=== PATIENT | male | born 1935 | race Caucasian/White ===

== ENCOUNTER 2021-06-05 19:01 | Emergency (ER) | payer OTHER, SELFPAY ==
--- NOTE | ~2021-06-05 | XR_ITS ---
EXAMINATION: XR chest 1V portable EXAM DATE: 06/05/2021 19:54 INDICATION: Disorientation, headache, and dizziness; pacemaker in 2016. TECHNIQUE: Portable AP frontal chest x-ray was obtained. There is no prior study for comparison. FINDINGS: There is a dual lead pacemaker/AICD seen with leads projecting over the expected locations of the right atrial appendage and right ventricle. The lungs are clear. There are no pleural effusio ns. The cardiomediastinal silhouette is within normal limits. There is no pneumothorax suspected. The bones and soft tissues are unremarkable. IMPRESSION: No acute cardiopulmonary findings. Reviewed, dictated and finalized at location G.
--- NOTE | 2021-06-05 19:13 | ECG_ITS ---
Measurements Intervals [place] Rate: 80 P: 233 AK: 305 QRS: 43 QRSD: 91 T: 44 QT: 398 QTc: 462 Interpretive Statements ELECTRONIC ATRIAL PACEMAKER NONSPECIFIC ST & T-WAVE ABNORMALITY ABNORMAL ECG NO PREVIOUS ECG AVAILABLE FOR COMPARISON Electronically Signed On 06-06-2021 13:48:11 CDT by Ranulfo Villarreal M.D.
[2021-06-05 19:15] VITALS: BP 209/88; PULSE 77; RESP 18; TEMP 36.4; O2SAT 99
[2021-06-05 19:30] VITALS: BP 218/95; PULSE 81; RESP 16; O2SAT 100
[2021-06-05 19:31] LABS: Basophils Absolute Auto 0.04 K/mm3 (0.00-0.10); Basophils Percent Auto 0.8 % (0.0-1.0); Eosinophils Absolute Auto 0.19 K/mm3 (0.02-0.50); Eosinophils Percent Auto 3.7 % (1.0-6.0); Hematocrit 31.6 % (37.0-46.0); Immature Granulocyte Absolute 0.01 K/mm3 (0.00-0.00); Immature Granulocyte Percent A 0.2 % (0.0-0.0); Lymphocytes Absolute Auto 0.79 K/mm3 (1.10-4.50); Lymphocytes Percent Auto 15.5 % (18.0-42.0); Mean Corpuscular HGB Conc 31.6 g/dL (32.0-36.0); Mean Corpuscular Hemoglobin 26.8 pg (27.0-31.0); Mean Corpuscular Volume 84.7 fL (78.0-102.0); Mean Platelet Volume 10.3 fl (8.7-11.0); Monocytes Absolute Auto 0.42 K/mm3 (0.10-0.90); Monocytes Percent Auto 8.2 % (2.0-11.0); Neutrophils Absolute Auto 3.7 K/mm3 (1.7-7.2); Neutrophils Percent Auto 71.6 % (50.0-70.0); Platelet Count Result 153 K/mm3 (150-420); Red Blood Count 3.73 M/mm3 (4.70-6.10); Red Cell Distribution Width 17.7 % (11.6-14.4); White Blood Count 5.1 K/mm3 (4.8-10.8)
--- NOTE | 2021-06-05 19:35 | ED.SYNCOPE ---
HPI - Syncope General Chief Complaint: Syncope Stated Complaint: AMB Source: patient, family and EMS Mode of arrival: EMS Limitations: no limitations History of Present Illness HPI narrative: Pt is on hospice for ESRD and lives in [place], [place]. Pt here visiting family. Pt was seated and was kind of slumped over and said he felt weak and then had period of time where he was not responding and was staring blankly ahead and not answering questions. 911 was called. Pt came around in route and did not have a post ictal period. Pt says he feels fine now. Pt denies CP or SOB around spell. complaint: loss of consciousness -: minutes(s) (a few) Prodromal symptoms: none Witnessed: Yes - by Bystander Context: at rest Injuries sustained associated with event: none Current symptoms: none and back to baseline Related Data Allergies Allergy/AdvReac Type Severity Reaction Status Date / Time No Known Allergies Allergy Verified 06/05/21 19:54 Review of Systems Review of Systems: All systems reviewed & are unremarkable except as noted in HPI and below Exam Const: General: no acute distress Orientation/consciousness: patient oriented x3 HENMT: Head: normal to inspection Eyes: Conjunctivae: conjunctivae normal Pupils: Equal, round and reactive pupils present EOM: EOMs intact bilaterally Resp: Effort & Inspection: normal respiratory effort Auscultation: clear to auscultation bilaterally Cardio: Rate: regular rate Rhythm: regular rhythm GI: GI Palp: Yes Soft to palpation and Yes Tenderness to palpation present (GI) (no tenderness) Auscultation: normal bowel sounds Skin: General skin exam: normal color Neuro: General: patient oriented x3, moves all extremities, no meningeal signs, no focal motor deficits and CN's II-XI intact bilaterally Cranial nerves: Yes Nystagmus not present Speech: normal speech Extrem: General: normal to inspection Psych: Appearance: grossly normal Mental Status: mental status grossly normal Thought content: Yes Normal thought content present Course Course Emergency Course: discussed with and patient. Pt is on hospice and they would rather not be admitted. Vital Signs Vital signs: Vital Signs Temperature 97.6 F 06/05/21 19:15 Pulse Rate 77 06/05/21 19:15 Respiratory Rate 18 06/05/21 19:15 Blood Pressure 209/88 H 06/05/21 19:15 Pulse Oximetry 99 06/05/21 19:15 Temperature 97.6 F 06/05/21 19:15 Pulse Rate 77 06/05/21 19:15 Respiratory Rate 18 06/05/21 19:15 Blood Pressure 209/88 H 06/05/21 19:15 Pulse Oximetry 99 06/05/21 19:15 MDM - Syncope Lab Data Result diagrams: 06/05/21 19:28 06/05/21 19:28 Labs: Lab Results 06/05/21 06/05/21 06/05/21 Range/Units 19:28 19:28 19:28 WBC 5.1 (4.8-10.8) K/mm3 RBC 3.73 L (4.70-6.10) M/mm3 Hgb 10.0 L (12.4-15.3) g/dL Hct 31.6 L (37.0-46.0) % MCV 84.7 (78.0-102.0) fL MCH 26.8 L (27.0-31.0) pg MCHC 31.6 L (32.0-36.0) g/dL RDW 17.7 H (11.6-14.4) % Plt Count 153 (150-420) K/mm3 MPV 10.3 (8.7-11.0) fl Immature Gran % (Auto) 0.2 H (0.0-0.0) % Neut % (Auto) 71.6 H (50.0-70.0) % Lymph % (Auto) 15.5 L (18.0-42.0) % [place] % (Auto) 8.2 (2.0-11.0) % Eos % (Auto) 3.7 (1.0-6.0) % Baso % (Auto) 0.8 (0.0-1.0) % Lymph # (Auto) 0.79 L (1.10-4.50) K/mm3 [place] # (Auto) 0.42 (0.10-0.90) K/mm3 Eos # (Auto) 0.19 (0.02-0.50) K/mm3 Baso # (Auto) 0.04 (0.00-0.10) K/mm3 Abs Immat Gran (auto) 0.01 H (0.00-0.00) K/mm3 Absolute Neuts (auto) 3.7 (1.7-7.2) K/mm3 Absolute Nucleated RBC 0.00 (0.00-0.00) K/mm3 Nucleated RBC % 0.0 (0-0.0) % PT 11.3 (9.50-12.10) Seconds INR 1.1 APTT 25.4 (23.90-30.70) SEC Sodium 134 L (136-145) mmol/L Potassium 3.9 (3.5-5.1) mmol/L Chloride 101 (98-108) mmol/L Carbon Dioxide 24 (21-32) mmol/L Anion Gap 9 (8-16) mmol
[2021-06-05 19:45] LABS: INR 1.1; Partial Thromboplastin Time 25.4 SEC (23.90-30.70); Prothrombin Time 11.3 Seconds (9.50-12.10)
[2021-06-05 19:48] LABS: Alanine Aminotransferase 14 U/L (16-63); Albumin Level 3.1 g/dL (3.4-5.0); Alkaline Phosphatase 154 U/L (46-116); Anion Gap 9 mmol/L (8-16); Aspartate Amino Transferase 15 U/L (15-37); Bilirubin,Total 0.3 mg/dL (0.00-1.00); Blood Urea Nitrogen 26 mg/dL (7-18); Calcium 8.4 mg/dL (8.5-10.1); Carbon Dioxide 24 mmol/L (21-32); Chloride 101 mmol/L (98-108); Estimated Glomerular Filt Rate 26; Glucose 103 mg/dL (70-99); Osmolality Calculated 282 mOsm/kg (285-295); Potassium 3.9 mmol/L (3.5-5.1); Sodium 134 mmol/L (136-145); Total Protein 7.1 g/dL (6.4-8.2); Troponin I 14.4 ng/L (0.00-60.4)
[2021-06-05 19:54] VITALS: BP 200/87; PULSE 82; RESP 18; O2SAT 100
[2021-06-05 20:15] VITALS: BP 210/76; PULSE 80; RESP 16; O2SAT 99
[2021-06-05 20:45] VITALS: BP 201/78; PULSE 80; RESP 18; O2SAT 100
== END 2021-06-05 21:00 | disposition home or self-care (01) ==
PROVIDERS: Emergency Provider Emergency Medicine
DX: R55 Syncope and collapse (principal); N18.6 End stage renal disease
CPT/HCPCS: 36415; 71045; 80053; 84484; 85025; 85610; 85730; 93005; 99284